=== PATIENT | male | born 2000 | race African-American/Black ===

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

== ENCOUNTER 2021-08-21 13:07 | Emergency (ER) | payer OTHER, SELFPAY ==
--- NOTE | ~2021-08-21 | XR_ITS ---
EXAMINATION: XR wrist LT min 3V DATE: 08/21/2021 13:32 INDICATION: 6 months of left wrist pain TECHNIQUE: Posteroanterior, ulnar deviation, oblique, and lateral views of the left wrist were obtain ed. COMPARISON: none FINDINGS: -3 mm ulnar positive variance. Alignment is otherwise normal. No fracture. Joint spaces are normal. N o erosions. Soft tissues are unremarkable. IMPRESSION: 1. 2-3 mm ulnar positive variance. Otherwise normal left wrist radiographs. Reviewed, dictated and finalized at location A. WORKING SUPERVISOR
[2021-08-21 13:14] VITALS: BP 148/58; PULSE 102; RESP 16; TEMP 36.6; O2SAT 100
--- NOTE | 2021-08-21 13:19 | ED.UPPEXIN ---
HPI - Extremity Injury (Upper) General Chief Complaint: Extremity Injury, Upper Stated Complaint: Right wrist injury Time Seen by Provider: 08/21/21 13:19 Source: patient Mode of arrival: ambulatory Limitations: no limitations History of Present Illness HPI narrative: 21-year-old male presented for complaint of pain to left wrist. Onset 6 months ago without known injury. He states he was playing basketball last night, fell on the left elbow and has had increased pain in the left wrist since the fall. He has not been taking anything for pain. Denies numbness, tingling, weakness, bruising or swelling of the left hand. Pain is worse with twisting motions especially taking the lid off of a jar. He states he is active, works in a warehouse and lifts weights, and plays basketball regularly. Related Data Allergies Allergy/AdvReac Type Severity Reaction Status Date / Time No Known Allergies Allergy Verified 08/21/21 13:14 Review of Systems Review of Systems: CONSTITUTIONAL: Denies body aches, fever, chills EYES: Denies visual changes ENT: Denies rhinorrhea, congestion CARDIOVASCULAR: Denies chest pain, palpitations, or edema. RESPIRATORY: Denies cough or dyspnea. GASTROINTESTINAL: Denies abdominal pain, nausea, vomiting, or diarrhea. SKIN: Denies rash, itching, or wounds. MUSCULOSKELETAL: left wrist pain NEUROLOGIC: Denies headache, numbness, tingling, or weakness. PSYCH: Denies depression or anxiety. All systems reviewed & are unremarkable except as noted in HPI and below PMFSH Past Medical History Medical History (Updated 08/21/21 @ 13:35 by Yoli Merritt APRN) Medial meniscus tear Tear of MCL (medial collateral ligament) of knee Surgical History Surgical History S/P epiphysiodesis Right distal femur/proximal tibia () Family History Family History Other Hypertension Social History Social History Alcohol intake: never Gender identity (if verbalized by the patient): Male Spiritual care concerns: No Comments At time of signature, I have reviewed and agree with nursing past medical, surgical, social and family history unless otherwise noted. Please see nursing chart for further information. There is no relevant family history pertinent to the presenting complaint Exam Narrative: GENERAL: Well-appearing, well-nourished, and in no acute distress. HEAD: Normocephalic, atraumatic. EYES: PERRLA, conjunctivae clear NECK: Supple. CHEST: Speaks in full sentences. No respiratory distress. HEART: Regular rate and rhythm. Normal and equal peripheral pulses. EXTREMITIES: left wrist has normal strength and sensation, normal range of motion but endorses pain with twisting movements. No edema or ecchymosis No point tenderness. No open wounds, no skin tenting, no obvious deformity; alignment normal, nearby joints and structures intact. Radial pulses palpable and equal bilaterally, skin warm, dry, pink. Capillary refill less than 3 seconds. SKIN: Warm, dry, no rash. NEURO: Alert and oriented x3. PSYCH: Normal mood and affect Course Course Emergency Course: Patient is aware of diagnosis, understands and agrees to treatment plan. Anticipatory guidance given. Patient agrees to follow-up as directed and is aware of reasons to seek care at the emergency department. Portions of this record may have been created with voice recognition software Level of Care: Express Care Visit Vital Signs Vital signs: Vital Signs Temperature 97.9 F 08/21/21 13:14 Pulse Rate 102 H 08/21/21 13:14 Respiratory Rate 16 08/21/21 13:14 Blood Pressure 148/58 H 08/21/21 13:14 Pulse Oximetry 100 08/21/21 13:14 Temperature 97.9 F 08/21/21 13:14 Pulse Rate 102 H 08/21/21 13:14 Respiratory Rate 16 08/21/21 13:14 Blood Pressure 148/5
== END 2021-08-21 14:06 | disposition home or self-care (01) ==
PROVIDERS: Emergency Provider Nurse Practitioner Family
DX: G89.29 Other chronic pain (principal); M25.532 Pain in left wrist
CPT/HCPCS: 73110; 99213; G0463

== ENCOUNTER 2022-02-21 11:00 | Outpatient (RCR) | payer OTHER, SELFPAY ==
--- NOTE | 2022-01-17 13:37 | PTOPEVAL ---
Thank you for referring Jin Cruz to [facility].? He is scheduled to be seen for therapy? 2 x/week for 4 weeks. Please review, sign, date and return this plan of care DONELL. I agree with and certify that the following plan of care is medically necessary. Referring Physician Date Attending Provider: Rj Rodas MD Past Medical History Source of Past Medical History Recalled from Previous Visit, Confirmed with Patient/Family Musculoskeletal History Hx Orthopedic Surgery Yes: R knee x 3- Estephania cardoso repair 2x & meniscal tear 2019 Hx Other Musculoskeletal Disorders Yes: L foot fracture- non surgical Evaluation Information Diagnosis L wrist and L knee Onset October 19, 2021 Subjective Information L wrist surgery- removed wedge Query Text:As Reported By Patient/ of ulnar bone and repaired Family tendon- per pt; with brace removed December 20; have been doing exercises and playing basket ball; L knee--pain comes and goes; saw Dr and have been doing exercises but not helping it. Diagnostic Tests X-Rays For This Problem No MRI For This Problem No Other Tests For This Problem No Prior Level of Function Activity Level (Last 3 Months) Occupation student Hand Dominance Right Comments Additional Prior Level of Function play basket ball, have Comments returned to playing but have pain in L wrist and L knee; normal play basket ball 2 1/2 to 3 hours Pain Assessment Pain Scale Pain Scale Used Numeric (1 - 10) Self Report Pain Assessment Left Knee(s) Reported Pain Level 0 Pain Description Pinching,Pulling,Sharp Pain Frequency Chronic,Intermittent Lowest Pain Intensity 0 Greatest Pain Intensity 8 Additional Pain Comments after play basketball and rest about 1 hr and pain gone; Estephania Cardoso Left Wrist(s) Reported Pain Level 1 Pain Description Sharp Pain Frequency Chronic,Intermittent Other Pain Description medial wrist/ulnar bone Lowest Pain Intensity 1 Greatest Pain Intensity 7 Pain Aggravating Factors Exercise/Activity Other Pain Aggravating Factors playing basket ball after 30 min, but can keep playing Additional Pain Score Comments
--- NOTE | 2022-01-17 16:02 | PCPTNOTE ---
I faxed a request to for OT eval and treat order for his wrist L;
--- NOTE | 2022-01-26 13:56 | PCPTNOTE ---
Patient called & cancelled scheduled appointment this date stating that he wasn't able to make it in for the appointment.
--- NOTE | 2022-01-31 15:38 | OTOPEVAL ---
OCCUPATIONAL THERAPY INITIAL EVALUATION REPORT 01/31/22 Thank you for referring Jin Cruz to [facility].? The patient is scheduled to be seen for therapy? 2x/week for 4 weeks. Please review, sign, date and return this plan of care DONELL. I agree with and certify that the following plan of care is medically necessary. Referring Physician Date Referring Provider: Rj Rodas MD Past Medical History Source of Past Medical History Recalled from Previous Visit, Confirmed with Patient/Family Neurological History Hx Neurological Disorders No Significant History Cardiovascular History Hx Cardiac Disorders No Significant History Respiratory History Hx Respiratory Disorders No Significant History Gastrointestinal History Hx Gastrointestinal Disorders No Significant History Genitourinary History Hx Genitourinary Disorders No Significant History Musculoskeletal History Hx Orthopedic Surgery Yes: R knee x 3- [place] dhaliwal repair 2x & meniscal tear 2019 Hx Other Musculoskeletal Disorders Yes: L foot fracture- non surgical Hematological History Hx Hematological Disorders No Significant History Endocrine History Hx Endocrine Disorders No Significant History HEENT History Hx HEENT Disorders No Significant History Integumentary History Hx Skin Disorders No Significant History Reproductive History Hx Reproductive Disorders No Significant History Psychosocial History Hx Psychiatric Disorders No Significant History Pain History History of Any Previous or Ongoing No Significant History Instance of Pain Anesthesia History Hx Anesthesia Reactions No Significant History Evaluation Information Problem Additional Evaluation Detail Patient underwent ulnar shortening to the left wrist on 10/19/21. Has not had any therapy. Subjective Information Splinted October 19, 2021 - Query Text:As Reported By Patient/ December 20, 2021. Patient Family reporting significant pain with use, trying to bear any weight through the hand, driving, playing basketball, etc. He leaves for college on 02/23. Prior Level of Function Activity Level (Last 3 Months) Occupation student, works at [employer] Hand Dominance Right Activity of Daily Living Ability Independent Driving Yes Pain Assessment Timing of Pain Assessment Timing of Pain Assessment Assessment Pain Scale Pain Scale Used Numeric (1 - 10) Self Report Pain Assessment Left Wrist(s) Reported Pain Level
--- NOTE | 2022-02-14 14:46 | PTOPEVAL ---
PHYSICAL THERAPY DISCHARGE REPORT 02-14-22 Refer to the clinical summary below, for his status today compared to the initial evaluation. The goals were partially achieved. Jin is leaving town for college; Discharge PT services. Thank you for referring Jin Cruz to [facility].? Please review, sign, date and return this Discharge report DONELL. I agree with and certify that the following plan of care is medically necessary. Referring Physician Date Attending Provider: Rj Rodas MD Subjective report: Jin reports:is doing the Query Text:As Reported By Patient/ exercises at home; is still Family having problems with the knee; is leaving for college next week; Pain Assessment Pain Scale Pain Scale Used Numeric (1 - 10) Self Report Pain Assessment Left Knee(s) Reported Pain Level 0 Pain Description Aching Pain Frequency Chronic,Intermittent Other Pain Description under knee cap hurts Lowest Pain Intensity 0 Greatest Pain Intensity 8 Pain Aggravating Factors Exercise/Activity Other Pain Aggravating Factors playing basket ball, up stairs Additional Pain Score Comments report tolerating playing basketball, onset of pain after 5 minutes, played 45 minutes then stopped; pain continues about 4-5 hours after rest and stop playing basket ball; kinesiotape helps the knee; applied at end of session over L patella; pt instructed on application and use of tape; issued name of tape; Interventions Used Interventions Used By Clinicians Education,Exercise,Taping Pain Relief Interventions Used By Elevation,Ice Patient Other Alleviating Interventions warm bath; stretch, tape Gross Lower Extremity Range of Motion -anterior hip/quad length with Comments prone knee flexion B 125'; - hip IR, supine with hip and knee at 90' flexion: R 10'/ L 20' Gross Lower Extremity Strength functional strength testing: - standing B small squat x 10 reps- increase pain under L knee cap -standing L only PF x 12 reps- increase burning in calf, no increase knee pain; perform with hip ER - forward lunge with L forward
--- NOTE | 2022-02-21 11:58 | OTOPEVAL ---
OCCUPATIONAL THERAPY RE-EVALUATION AND DISCHARGE SUMMARY 02/21/22 Jin presents for OT re-evaluation following 3 weeks of treatment s/p left ulnar shortening surgery. He has progressed well with therapy and reports improved functional use of the left UE for ADLs, lifting/working out, and playing basketball. He continues to have some residual forearm stiffness for which he is independent with HEP. No further skilled OT indicated at this time. Thank you for referring Jin Cruz to [facility]. Please review, sign, date and return this D/C Note DONELL. I agree with and certify that the following plan of care is medically necessary. Referring Physician Date Referring Provider: Rj Rodas MD Re-Evaluation Information Problem Additional Evaluation Detail Patient underwent ulnar shortening to the left wrist on 10/19/21. He has attended 5 outpatient hand therapy sessions. Subjective Information Jin reports improvements Query Text:As Reported By Patient/ with functional ROM and Family strength. He states he is now using his left hand to drive, is now able to to push ups, and has been able to get back to lifting and working out. He reports some residual stiffness and pain with pronation. Pain Assessment Timing of Pain Assessment Timing of Pain Assessment Re-assessment Pain Scale Pain Scale Used Numeric (1 - 10) Self Report Pain Assessment Left Wrist(s) Reported Pain Level 0 Pain Score Pain Score 0: Self Report Additional Pain Score Comments Patient reports no pain at rest. Continues to have 6-8/10 with exercises and when playing basketball. He states he doesn't get as sore as he used to following exercise. Upper Extremity Range of Motion Elbow/Forearm Range of Motion Left Forearm Supination - Active 85 Forearm Pronation - Active 60 Forearm Pronation - Passive 75 Elbow/Forearm Range of Motion Comments Supination improved from 80 deg. Pronation improved from 30 deg . actively Pronation improved from 45 deg . passively Wrist Range of Motion Left Wrist Flexion - Active 70 Wrist Extension - Active 70 Wrist Radial Deviation - Active 30 Wrist Ulnar Deviation - Active 35 Wrist Range of Motion Comments Wrist flexion improved from 6
== END 2022-02-21 14:22 | disposition home or self-care (01) ==
LOC: ANHOT 11:00
PROVIDERS: PCP Nurse Practitioner Family; Visit Provider Orthopaedic Surgery
DX: M76.52 Patellar tendinitis, left knee (principal); Q74.0 Other congenital malformations of upper limb(s), including shoulder girdle
CPT/HCPCS: 97018; 97110; 97112; 97140; 97161; 97165

== ENCOUNTER 2024-07-04 12:31 | Emergency (ER) | payer OTHER, SELFPAY ==
--- NOTE | ~2024-07-04 | XR_ITS ---
EXAMINATION: XR foot LT min 3V DATE: 07/04/2024 13:01 INDICATION: Left foot pain. TECHNIQUE: 4 views of left foot were obtained. COMPARISON: Left foot radiographs 03/22/2024 FINDINGS: Alignment is normal. There is a healed fracture of fifth metatarsal with internal fixation with a lag screw. There is mild osteoarthritis of talonavicular joint. IMPRESSION: 1. Healed fracture of fifth metatarsal with internal fixation. Reviewed, dictated and finalized at location A. LESS DEVELOPMENT MANAGER
[2024-07-04 12:39] VITALS: BP 155/72; PULSE 75; RESP 16; TEMP 37; O2SAT 99
--- NOTE | 2024-07-04 13:11 | ED.LOWEXIN ---
HPI - Extremity Injury (Lower) General Chief Complaint: Extremity Injury, Lower Stated Complaint: left foot pain Source: patient Mode of arrival: ambulatory Limitations: no limitations History of Present Illness HPI Narrative: 24 y/o male presented for c/o left lateral foot pain for 3 weeks. Pain started after playing basketball, stating he had not played in a while. States he has a history of left 5th metatarsal fractures x2 in the past year. Denies swelling, bruising or deformity. Has been able to walk. Related Data Allergies Allergy/AdvReac Type Severity Reaction Status Date / Time No Known Allergies Allergy Verified 07/04/24 12:43 Review of Systems Review of Systems: per HPI All systems reviewed & are unremarkable except as noted in HPI and below PMFSH Past Medical History Medical History Medial meniscus tear RIGHT knee 03/2020 Recurrent 03/2024 Tear of MCL (medial collateral ligament) of knee RIGHT knee 03/2020 Surgical History Surgical History H/O medial meniscus repair of right knee 03/2020 S/P epiphysiodesis Right distal femur/proximal tibia () Family History Family History Other Hypertension Social History Social History Smoking status: Never smoker Alcohol intake: never Substance use: never Living arrangements: with family Gender identity (if verbalized by the patient): Male Spiritual care concerns: No Comments At time of signature, I have reviewed and agree with nursing past medical, surgical, social and family history unless otherwise noted. Please see nursing chart for further information. There is no relevant family history pertinent to the presenting complaint Exam Narrative: GENERAL: Well-appearing CHEST: Speaks in full sentences. No respiratory distress. HEART: Regular rate and rhythm. Normal and equal peripheral pulses. EXTREMITIES: Left foot has normal strength and sensation, normal range of motion. No swelling or ecchymosis, No point tenderness. No open wounds, or obvious deformity; alignment normal, pulse palpable and equal bilaterally, skin warm, dry, pink. Capillary refill less than 3 seconds. SKIN: Warm, dry NEURO: Alert and oriented x3. PSYCH: Normal mood and affect Course Course Emergency Course: Patient is aware of diagnosis, understands and agrees to treatment plan. Anticipatory guidance given. Patient agrees to follow-up as directed and is aware of reasons to seek care at the emergency department. Portions of this record may have been created with voice recognition software Level of Care: Express Care Visit Vital Signs Vital signs: Vital Signs Temperature 98.6 F 07/04/24 12:39 Pulse Rate 75 07/04/24 12:39 Respiratory Rate 16 07/04/24 12:39 Blood Pressure 155/72 H 07/04/24 12:39 Pulse Oximetry 99 07/04/24 12:39 Temperature 98.6 F 07/04/24 12:39 Pulse Rate 75 07/04/24 12:39 Respiratory Rate 16 07/04/24 12:39 Blood Pressure 155/72 H 07/04/24 12:39 Pulse Oximetry 99 07/04/24 12:39 Reviewed MDM - Extremity Injury (Lower) MDM Narrative Medical decision making narrative: Discussed physical exam findings and xray. Advised supportive measures and signs/symptoms to go to the ER. Pt is appropriate for outpt treatment and f/u. Differential Diagnosis Differential diagnosis: Likely ankle sprain and strain, puncture wound of foot, fracture of toe and ankle fracture Imaging Data Radiologist's impression: Patient: Jin Cruz : 2000 MR#: [id number] Age: 24 Acct:[id number] Loc: [facility] ADM Date: 07/04/24Attending Dr: Ordering Physician: Yoli Graves APRN Date of Service: 07/04/24 Procedure(s): XR foot LT min 3V Accession Number(s): [id number] cc: Yoli Graves APRN; UNKNOWN,DOCTOR~ EXAMINATION: XR foot LT min 3V DATE: 07/04/2024 13:01 INDICATION: Left foot pain. TECHNIQUE: 4 views of left foot were obtained. COMPARISON: Left foot radiographs 03/22/2024 FINDINGS: Alignment is normal. There is a healed fracture of fifth metatarsal with internal fixation with a lag screw. There is mild osteoarthritis of talonavicular joint. IMPRESSION: 1. Healed fracture of fifth metatarsal with internal fixation. Discharge Plan Discharge Clinical Impression: Foot pain, left Patient Disposition: Home, Self-Care Condition: Stable Instructions: Foot Sprain (ED) Additional Instructions: Rest, elevate the left foot Avoid running, jumping or excessive walking Roll a frozen water bottle under your foot for at least 10 minutes 3 times a day Wear supportive shoes at all times, avoid flip flop or walking barefoot ROXANA wrap or sleeve to support foot and ankle Tylenol 1000mg every 8 hours as needed, alternate with ibuprofen 800 mg every 8 hours as needed for pain Go to the ER if you feel sudden and severe pain or cannot walk If you feel pain that persists or worsens or you struggle to work or do daily activities you need to follow up with your primary care provider. Patient Language: Israeli Follow-up/Referrals: UNKNOWN,DOCTOR [Primary Care Provider] - Time of Disposition: 13:19
== END 2024-07-04 13:21 | disposition home or self-care (01) ==
PROVIDERS: Emergency Provider Nurse Practitioner Family
DX: M79.672 Pain in left foot (principal)
CPT/HCPCS: 73630; 99213; G0463

== ENCOUNTER 2024-07-17 09:00 | Outpatient (RCR) | payer OTHER, SELFPAY ==
--- NOTE | 2024-03-20 11:30 | PCPTNOTE ---
Patient did not show up for scheduled initial evaluation this date.
--- NOTE | 2024-04-16 09:07 | PCPTNOTE ---
Patient did not show up for scheduled appointment this date. This is the third time his evaluation has been scheduled.
--- NOTE | 2024-04-30 12:36 | OPREHPOC ---
Outpatient Therapy Plan of Care This is a Multidisciplinary Plan of Care that may contain components documented by all disciplines (PT, OT, and ST.) PT Problem 1 PT Problem #1 Knowledge Deficit PT Goal 1 Goal / Goal Update [place] with HEP Target Visit 4 PT Problem 2 PT Problem #2 Impaired Range of Motion PT Goal 1 Goal / Goal Update Demonstrate -20 degrees of flaco hamstring 90/90 to reduce posterior pelvic pull Target Visit 8 PT Goal 2 Goal / Goal Update Demonstrate 10 degrees flaco hip extension in Ganesh test to improve terminal stance of gait and reduce patellar pull from quad Target Visit 10 PT Problem 3 PT Problem #3 Impaired Range of Motion PT Goal 1 Goal / Goal Update Achieve 10+ degrees of flaco ankle dorsiflexion ROM to improve terminal stance and ankle mobility Target Visit 10 PT Problem 4 PT Problem #4 Impaired Strength PT Goal 1 Goal / Goal Update Improve flaco hip abduction strength to 4+/5 to improve lateral stability with dynamic ADL loading
--- NOTE | 2024-04-30 12:37 | PTOPEVAL1 ---
Assessment and note entered by Brendon Barker, PT Evaluation Information Assessment Status Evaluation Diagnosis History of 5th met fracture Onset April 2023 Subjective Information Reports that he is getting some pain with activity and occasional shocks of discomfort at rest. Will get pain in lateral calf as well. Currently feels he could walk about a quarter mile before he gets pain in his knee or foot. He has history of left meniscectomy and jumpers knee on flaco knees. He had returned to basketball last July but refractured his foot. He has mostly been shut down since January but was doing stationary bike. Reported Pain Level Pain Score 0: Self Report Assessment PT Clinical Summary Patient presents with limited hip mobility with notable muscle imbalance. Weakness noted in lateral hips and lateral ankle. Patient has gross kinematic mobility deficits resulting in poor distribution of force and weight in dynamic activity. Patient will benefit from skilled therapy to address these deficits to reduce pain and risk of injury with transition to age appropriate dynamic activity. Plan of Care Interventions Gait Training,Manual Therapy,Neuro Re-education, Therapeutic Activities,Therapeutic Exercise PT Services Indicated Yes Treatment Frequency and 2x/week for 8 visits Duration These treatments will address the objective and functional deficits as defined above. The patient will be advanced safely and appropriately in order for the patient to progress towards his/her prior level of function. Additional exercises will be introduced and as well as a comprehensive home exercise program upon discharge, if needed, ?to ensure carryover of functional gains achieved in the clinic. This treatment plan has been reviewed and agreement upon by the patient.
--- NOTE | 2024-05-28 16:58 | OPREHPOC ---
Outpatient Therapy Plan of Care This is a Multidisciplinary Plan of Care that may contain components documented by all disciplines (PT, OT, and ST.) PT Problem 1 PT Problem #1 Knowledge Deficit PT Goal 1 Goal / Goal Update [place] with HEP Target Visit 4 Progress Met PT Problem 2 PT Problem #2 Impaired Range of Motion PT Goal 1 Goal / Goal Update Demonstrate -20 degrees of flaco hamstring 90/90 to reduce posterior pelvic pull Target Visit 8 Progress Met PT Goal 2 Goal / Goal Update Demonstrate 10 degrees flaco hip extension in Ganesh test to improve terminal stance of gait and reduce patellar pull from quad Target Visit 10 Progress Met PT Problem 3 PT Problem #3 Impaired Range of Motion PT Goal 1 Goal / Goal Update Achieve 10+ degrees of flaco ankle dorsiflexion ROM to improve terminal stance and ankle mobility Target Visit 10 Progress Met PT Problem 4 PT Problem #4 Impaired Strength PT Goal 1 Goal / Goal Update Improve flaco hip abduction strength to 4+/5 to improve lateral stability with dynamic ADL loading -Still lacking Target Visit 16 Progress Partially Met PT Goal 2 Goal / Goal Update Demonstrate ability to perform dynamic jumping activity without increased knee pain. Target Visit 16
--- NOTE | 2024-05-28 16:58 | PTOPPROG ---
Assessment and note entered by Brendon Barker, PT Evaluation Information Assessment Status Progress Diagnosis History of 5th met fracture Onset April 2023 Subjective Information Reports that he has been emphasizing HEP for hip strength and ROM in ankle and flaco hips. He has tried light running and shoe shooting with mild discomfort. Does not have pain at rest. Assessment PT Clinical Summary Patient seen functional progress with strength and stability improvement in affected knee and leg but continue to lack dynamic stability for age appropriate activity. He continues to have significant pain with knee stability exercise and single leg activity but is non painful at rest which is an improvement. Will continue to benefit from skilled therapy to address deficits. Plan of Care Interventions Gait Training,Manual Therapy,Neuro Re-education, Therapeutic Activities,Therapeutic Exercise PT Services Indicated Yes Treatment Frequency and 2x/week for 8 visits Duration These treatments will address the objective and functional deficits as defined above. The patient will be advanced safely and appropriately in order for the patient to progress towards his/her prior level of function. Additional exercises will be introduced and as well as a comprehensive home exercise program upon discharge, if needed, ?to ensure carryover of functional gains achieved in the clinic. This treatment plan has been reviewed and agreement upon by the patient.
--- NOTE | 2024-06-06 09:12 | PCPTNOTE ---
Patient no showed to appointment this date. Called and left voicemail. Patient called back to say he got his appointment times mixed up.
== END 2024-07-29 23:59 | disposition home or self-care (01) ==
LOC: ANHGOSHPT 09:00
PROVIDERS: PCP Nurse Practitioner Family; Visit Provider Orthopaedic Surgery
DX: S92.352D Displaced fracture of fifth metatarsal bone, left foot, subsequent encounter for fracture with routine healing (principal)
CPT/HCPCS: 97016; 97110; 97161; 97530

== ENCOUNTER 2024-07-29 14:21 | Emergency (ER) | payer OTHER, SELFPAY ==
[2024-07-29 14:48] VITALS: BP 130/53; PULSE 59; RESP 16; TEMP 36.4; O2SAT 100
== END 2024-07-29 15:19 | disposition left against medical advice (07) ==
LOC: EXPGOSH 14:23
PROVIDERS: Emergency Provider Nurse Practitioner Family
DX: Z53.21 Procedure and treatment not carried out due to patient leaving prior to being seen by health care provider (principal)
CPT/HCPCS: 99199

== ENCOUNTER 2024-08-05 11:26 | Outpatient (RCR) | payer OTHER, SELFPAY ==
--- NOTE | 2024-08-05 10:15 | PCPTNOTE ---
The treatment documented on this account is a continuation of the treatment documented on visit number [id number]. Please see documentation on both accounts to view progress. The Plan of Care has been transitioned and updated within the new V#. I have addressed and agree with the discipline specific Problems, Interventions, and Goals for the current certification period. Completed interventions, outcomes, and problems have been marked as Inactive to facilitate the copying of the Care plan routine for recurring accounts.
--- NOTE | 2024-08-05 11:17 | OPREHPOC ---
Outpatient Therapy Plan of Care This is a Multidisciplinary Plan of Care that may contain components documented by all disciplines (PT, OT, and ST.) PT Problem 1 PT Problem #1 Knowledge Deficit PT Goal 1 Goal / Goal Update [place] with HEP Target Visit 4 Progress Met PT Problem 2 PT Problem #2 Impaired Range of Motion PT Goal 1 Goal / Goal Update Demonstrate -20 degrees of flaco hamstring 90/90 to reduce posterior pelvic pull Target Visit 8 Progress Met PT Goal 2 Goal / Goal Update Demonstrate 10 degrees flaco hip extension in Ganesh test to improve terminal stance of gait and reduce patellar pull from quad Target Visit 10 Progress Met PT Problem 3 PT Problem #3 Impaired Range of Motion PT Goal 1 Goal / Goal Update Achieve 10+ degrees of flaco ankle dorsiflexion ROM to improve terminal stance and ankle mobility Target Visit 10 Progress Met PT Problem 4 PT Problem #4 Impaired Strength PT Goal 1 Goal / Goal Update Improve flaco hip abduction strength to 4+/5 to improve lateral stability with dynamic ADL loading -Still lacking Target Visit 16 Progress Met PT Goal 2 Goal / Goal Update Demonstrate ability to perform dynamic jumping activity without increased knee pain. 08/05/24: 1. progressing Target Visit 16 Progress Not Met
--- NOTE | 2024-08-05 11:17 | PTOPPROG ---
Assessment and note entered by Gary Woo, PT, DPT Evaluation Information Assessment Status Progress Diagnosis History of 5th met fracture Onset April 2023 Subjective Information Pt has not been at therapy for the last 2 weeks d/ t insurance verification. He states since then he has been playing 4v4 and has progressed to 5v5 on a full court. States afterwards his L foot and flaco knees are really sore. Assessment PT Clinical Summary Pt has completed 16 visits of skilled therapy, he demonstrates improved LE strength throughout, his R hip abduction and L ankle plantarflexion continue to be weaker when compared to his uninvolved side. He has progressed his dynamic exercise level but continues to have persistent ankle and knee pain with age appropriate activities. Has improved strength and stability with single leg exercises but still has an increase in pain afterwards. Continuation of skilled therapy services are indicated to improve strength and stability, pain reports, and return to PLOF. ill continue to benefit from skilled therapy to address deficits. Plan of Care Interventions Gait Training,Manual Therapy,Neuro Re-education, Therapeutic Activities,Therapeutic Exercise PT Services Indicated Yes Treatment Frequency and 2x/wk for 8 visits Duration These treatments will address the objective and functional deficits as defined above. The patient will be advanced safely and appropriately in order for the patient to progress towards his/her prior level of function. Additional exercises will be introduced and as well as a comprehensive home exercise program upon discharge, if needed, ?to ensure carryover of functional gains achieved in the clinic. This treatment plan has been reviewed and agreement upon by the patient.
--- NOTE | 2024-08-09 11:30 | PCPTNOTE ---
Patient no showed appointment this date. Called patient and patient said that he wrote down the wrong time for his appointment today. Confirmed next appointment with patient which is 08/16.
--- NOTE | 2024-08-14 10:34 | PCPTNOTE ---
Patient had to cancel therapy this date due to having to watch his brother who did not have school.
--- NOTE | 2024-08-16 09:05 | PCPTNOTE ---
Patient canceled this date due to car trouble.
--- NOTE | 2024-08-21 10:13 | PCPTNOTE ---
Patient called to cancel this date due to illness. Patient states he wants to cancel all his remaining visits out due to his schedule and not being able to make it.
--- NOTE | 2024-08-27 10:15 | PTOPDC ---
Assessment and note entered by Gary Woo, PT, DPT Evaluation Information Assessment Status Discharge - Pt Not Present Diagnosis History of 5th met fracture Onset April 2023 Subjective Information Pt called and cancelled all of his remaining appointments states his schedule is too busy at this time. Assessment PT Clinical Summary Pt completed 16 visits of skilled therapy from to 08/21/24. Will be discharged at this time per pt request.
== END 2024-08-27 14:03 | disposition home or self-care (01) ==
LOC: ANHGOSHPT 11:26
PROVIDERS: Visit Provider Orthopaedic Surgery
DX: S92.352D Displaced fracture of fifth metatarsal bone, left foot, subsequent encounter for fracture with routine healing (principal)
CPT/HCPCS: 97110; 97530

== ENCOUNTER 2024-11-01 13:30 | Outpatient (RCR) | payer OTHER, SELFPAY ==
--- NOTE | 2024-10-08 16:55 | OPREHPOC ---
Outpatient Therapy Plan of Care This is a Multidisciplinary Plan of Care that may contain components documented by all disciplines (PT, OT, and ST.) PT Problem 1 PT Problem #1 Knowledge Deficit PT Goal 1 Goal / Goal Update [place] with HEP Target Visit 4 PT Goal 2 Goal / Goal Update Improve LEFS score by 40% Target Visit 8 PT Problem 2 PT Problem #2 Pain PT Goal 1 Goal / Goal Update Report no knee pain greater than 1/10 for 2 consecutive weeks Target Visit 8 PT Problem 3 PT Problem #3 Impaired Range of Motion PT Goal 1 Goal / Goal Update 1. Improve R knee flexion ROM to 130 degrees without pain 2. Improve left ankle dorsiflexion ROM to 15 degrees to improve leading of ankle in closed pack position8 Target Visit 8 PT Problem 4 PT Problem #4 Impaired Functional Mobility PT Goal 1 Goal / Goal Update Demonstrate ability to perform jumping and dynamic activity for 5 minutes without increased knee pain Target Visit 8
--- NOTE | 2024-10-08 16:55 | PTOPEVAL1 ---
Assessment and note entered by Brendon Barker, PT Evaluation Information Assessment Status Evaluation Diagnosis S83.231D Right Medial meniscus tear ICD-10 Condition Codes (PT) Pain in right shoulder M25.511,Pain in right knee M25.561 Onset August 31, 2024 Subjective Information Reports that he has had a lot of issues recently with his right knee. He has noted some improvement in the past few days with motion. Reports that he is also having some issues with his shoulder as well. Pain has been somewhat increased with stretching at this time. Reports that he had a basketball showcase in August and the pain really set in after that. He is also having a mild provocation of let foot pain but it seems to be getting better in the last few weeks. Reported Pain Level Pain Score 1,3: Self Report Assessment PT Clinical Summary Patient presents with mobility deficits of left ankle, right knee, and flaco rotation of hips affecting dynamic functional activity and plyometrics. Patient presents with stability deficits of R shoulder as well which may be affected by gross lower chain instability translating into upper body activity. Patient will benefit form skilled therapy to address mobility and strength deficits with gross stability training as long-term goal. Plan of Care Interventions Electrical Stimulation,Gait Training,Manual Therapy,Neuro Re-education,Therapeutic Activities, Therapeutic Exercise PT Services Indicated Yes Treatment Frequency and 1-2x/week for 8 visits Duration These treatments will address the objective and functional deficits as defined above. The patient will be advanced safely and appropriately in order for the patient to progress towards his/her prior level of function. Additional exercises will be introduced and as well as a comprehensive home exercise program upon discharge, if needed, ?to ensure carryover of functional gains achieved in the clinic. This treatment plan has been reviewed and agreement upon by the patient.
--- NOTE | 2024-10-23 10:07 | PCPTNOTE ---
Patient called & cancelled scheduled appointment this date due to scheduling conflicts.
--- NOTE | 2024-10-28 08:06 | PCPTNOTE ---
Patient called & cancelled scheduled appointment this date due to being in too much pain to participate.
--- NOTE | 2024-11-01 15:41 | OPREHPOC ---
Outpatient Therapy Plan of Care This is a Multidisciplinary Plan of Care that may contain components documented by all disciplines (PT, OT, and ST.) PT Problem 1 PT Problem #1 Knowledge Deficit PT Goal 1 Goal / Goal Update [place] with HEP Target Visit 4 Progress Met PT Goal 2 Goal / Goal Update Improve LEFS score by 40% Target Visit 8 Progress Met PT Problem 2 PT Problem #2 Pain PT Goal 1 Goal / Goal Update Report no knee pain greater than 1/10 for 2 consecutive weeks Target Visit 8 Progress Met PT Problem 3 PT Problem #3 Impaired Range of Motion PT Goal 1 Goal / Goal Update 1. Improve R knee flexion ROM to 130 degrees without pain 2. Improve left ankle dorsiflexion ROM to 15 degrees to improve leading of ankle in closed pack position8 Target Visit 8 Progress Met PT Problem 4 PT Problem #4 Impaired Functional Mobility PT Goal 1 Goal / Goal Update Demonstrate ability to perform jumping and dynamic activity for 5 minutes without increased knee pain Target Visit 8 Progress Met
--- NOTE | 2024-11-01 15:41 | PTOPDC ---
Assessment and note entered by Brendon Barker, PT Evaluation Information Assessment Status Discharge Diagnosis S83.231D Right Medial meniscus tear ICD-10 Condition Codes (PT) Pain in right shoulder M25.511,Pain in right knee M25.561 Onset August 31, 2024 Subjective Information Reports that as of right now he is feeling better. Played a game of pickup basketball last week and was a little sore but able to roll and stretch it out. He has been consistently foam rolling and has seen decreased pain and improved gross hip and knee mobility. Reported Pain Level Pain Score 0,0: Self Report Assessment PT Clinical Summary Patient met all goals for therapy at this time and is suitable for discharge to [facility] to independent foam rolling and mobility activity. Patient has follow up scheduled with MD to review MRI of both knee and shoulder. Plan of Care PT Services Indicated Yes
== END 2024-11-04 11:58 | disposition home or self-care (01) ==
LOC: ANHGOSHPT 13:30
PROVIDERS: PCP Orthopaedic Surgery; Visit Provider Orthopaedic Surgery
DX: S92.352D Displaced fracture of fifth metatarsal bone, left foot, subsequent encounter for fracture with routine healing (principal); S83.231D Complex tear of medial meniscus, current injury, right knee, subsequent encounter
CPT/HCPCS: 97014; 97110; 97140; 97161; 97530; G0283

== ENCOUNTER 2025-01-01 12:46 | Emergency (ER) | payer OTHER, SELFPAY ==
[2025-01-01 12:58] VITALS: BP 133/65; PULSE 48; RESP 16; TEMP 36.6; O2SAT 100
--- NOTE | 2025-01-01 13:00 | ED.LOWEXIN ---
HPI - Extremity Injury (Lower) General Chief Complaint: Extremity Injury, Lower Stated Complaint: L HIP PAIN Time Seen by Provider: 01/01/25 13:00 Source: patient Mode of arrival: ambulatory Limitations: no limitations History of Present Illness HPI Narrative: 24 yo M presents with pain to L upper anterior thigh. Pain worse with movement. Started yesterday while stepping wrong. Ambulatory with limp. has not taken any pain medication. concerned he may need an MRI. No weakness, numbness/tingling. all systems reviewed and negative except as noted above. Related Data Allergies Allergy/AdvReac Type Severity Reaction Status Date / Time No Known Allergies Allergy Verified 01/01/25 12:54 Review of Systems Review of Systems: CONSTITUTIONAL: Denies fever, chills, or sweats. EYES: Denies visual changes, redness, or discharge. ENT: Denies rhinorrhea, congestion, sore throat, or otalgia. CARDIOVASCULAR: Denies chest pain, palpitations, or edema. RESPIRATORY: Denies cough or dyspnea. GASTROINTESTINAL: Denies abdominal pain, nausea, vomiting, or diarrhea. GENITOURINARY: Denies dysuria or hematuria. SKIN: Denies rash or itching. MUSCULOSKELETAL: Denies back pain, joint pain, or myalgia. Reports left upper thigh pain NEUROLOGIC: Denies headache, numbness, or weakness. PSYCHIATRIC: Denies anxiety or depression. All other systems reviewed are negative, except as documented in HPI. [facility] Past Medical History Medical History Medial meniscus tear RIGHT knee 03/2020 Recurrent 03/2024 Tear of MCL (medial collateral ligament) of knee RIGHT knee 03/2020 Surgical History Surgical History H/O medial meniscus repair of right knee 03/2020 S/P epiphysiodesis Right distal femur/proximal tibia () Family History Family History Other Hypertension Social History Social History Smoking status: Never smoker Alcohol intake: never Substance use: never Living arrangements: with family Gender identity (if verbalized by the patient): Male Spiritual care concerns: No Comments At time of signature, agree with nursing past medical, surgical, social and family history. There is no relevant family history pertinent to the presenting complaint. Exam Narrative: GENERAL: This is a well-nourished, well-developed patient, in no apparent distress. HEAD: normocephalic, atraumatic. EYES: PERRL. Sclera clear/white. Vision is grossly intact. EARS: External ears normal NOSE: External nose normal NECK: Neck supple, non-tender without lymphadenopathy, masses or thyromegaly. CARDIOVASCULAR: Regular rate and rhythm without murmurs, gallops, or rubs. RESPIRATORY: Clear to auscultation. Breath sounds equal bilaterally. No wheezes, rales, or rhonchi. SKIN: warm, Dry, intact with no suspicious lesions or rash, good texture and turgor. NEURO: awake, alert, and oriented to person, place and time. There were no obvious focal neurologic abnormalities. EXTREMITIES: muscular tenderness anterior aspect L upper thigh. No increase in pain with abduction or adduction of L hip. no swelling or deformity noted. no groin tenderness. Course Course Level of Care: Express Care Visit Vital Signs Vital signs: Vital Signs Temperature 36.6 C 01/01/25 12:58 Pulse Rate 48 L 01/01/25 12:58 Respiratory Rate 16 01/01/25 12:58 Blood Pressure 133/65 01/01/25 12:58 Pulse Oximetry 100 01/01/25 12:58 Oxygen Delivery Room Air 01/01/25 12:58 Temperature 36.6 C 01/01/25 12:58 Pulse Rate 48 L 01/01/25 12:58 Respiratory Rate 16 01/01/25 12:58 Blood Pressure 133/65 01/01/25 12:58 Pulse Oximetry 100 01/01/25 12:58 Oxygen Delivery Room Air 01/01/25 12:58 Reviewed MDM - Extremity Injury (Lower) MDM Narrative Medical decision making narrative: Muscular tenderness to left upper thigh. X-ray not indicated due to no bony tenderness. Patient ambulatory with slight. Recommend ibuprofen, muscle relaxant stretching, ice. Will see his primary care physician if pain is not improving. No neurovascular symptoms. Discharge Plan Discharge Clinical Impression: Sprain and strain of other specified sites of hip and thigh Patient Disposition: Home Condition: Stable Instructions: Muscle Strain (ED) Additional Instructions: Take medications as prescribed. Methocarbamol as a muscle relaxant may cause drowsiness. Do not drive while taking this medication. Do stretching exercises as tolerated. Alternate between ice and heat. Avoid activities that increase pain to left upper leg. If pain not improving follow-up with your primary care physician. Patient Language: Haitian Prescriptions: New ibuprofen 800 mg tablet 800 mg PO TID PRN (Reason: pain) Qty: 30 0RF methocarbamol 750 mg tablet 750 mg PO Q8H PRN (Reason: muscle pain/spasm) Qty: 30 0RF Follow-up/Referrals: Faye,Yovani [Other] Time of Disposition: 13:08
== END 2025-01-01 13:12 | disposition home or self-care (01) ==
PROVIDERS: Emergency Provider Nurse Practitioner Family
DX: S73.192A Other sprain of left hip, initial encounter (principal); S79.822A Other specified injuries of left thigh, initial encounter; S76.812A Strain of other specified muscles, fascia and tendons at thigh level, left thigh, initial encounter; S76.012A Strain of muscle, fascia and tendon of left hip, initial encounter; X50.9XXA Other and unspecified overexertion or strenuous movements or postures, initial encounter
CPT/HCPCS: 99213; G0463

== ENCOUNTER 2025-01-26 14:17 | Emergency (ER) | payer OTHER, SELFPAY ==
--- NOTE | ~2025-01-26 | XR_ITS ---
EXAM: XR foot LT min 3V DATE: 01/26/2025 14:36 HISTORY: left foot pain/5th metatarsal- hx of fracture . COMPARISON: 07/04/2024; 07/18/2018. FINDINGS: Normal mineralization. Status post screw fixation of the left fifth metatarsal. Stable 2 m m lucency at the tip of the screw. No hardware fracture. Transversely oriented lucency involving the lateral cortex of the left fifth metatarsal shaft, with adjacent cortical thickening/sclerosis. No ly tic or blastic lesion. Joint spaces are maintained. No erosion or periosteal change. Soft tissues wit hin normal limits. IMPRESSION: New transverse cortical lucency in the lateral aspect of the left fifth metatarsal shaft which may re present a recurrent stress fracture, despite the presence of a fixation screw. No definite evidence o f screw failure. Infection could also be considered in the differential, but is considered less likel y. Reviewed, dictated and finalized at location K. IMPRESSION: New transverse cortical lucency in the lateral aspect of the left fifth metatar ehsan shaft which may represent a recurrent stress fracture, despite the presence of a fixation screw. No definite evidence of screw failure. Infection could al so be considered in the differential, but is considered less likely.
--- NOTE | 2025-01-26 14:19 | ED.LOWEXIN ---
HPI - Extremity Injury (Lower) General Chief Complaint: Extremity Injury, Lower Stated Complaint: INJURED L FOOT Time Seen by Provider: 01/26/25 14:18 Source: patient Mode of arrival: ambulatory Limitations: no limitations History of Present Illness HPI Narrative: Jin is a 25 year old male patient presenting to the clinic today with c/o left foot injury that occurred 30 minutes ago when he was playing basketball. He reports he was playing basketball he twisted his left foot to do a move and felt a pop in the left foot/5th metatarsal. Having pain over the left 5th metatarsal. History of fracture of the left 5th metatarsal with ORIF. Related Data Home Medications ?Medication ?Instructions ?Recorded ?Confirmed ?Last Taken ?Type No Home Medications 01/26/25 01/26/25 Unknown History Allergies Allergy/AdvReac Type Severity Reaction Status Date / Time No Known Allergies Allergy Verified 01/26/25 14:25 Review of Systems Review of Systems: Pertinent positives per HPI. Patient denies any fever, chills, rash, headache, visual changes, dizziness, cough, runny nose, sore throat, shortness of breath, chest pain, palpitations, nausea, vomiting, diarrhea, constipation, abdominal pain, or any urinary issues. [facility] Past Medical History Medical History Medial meniscus tear RIGHT knee 03/2020 Recurrent 03/2024 Tear of MCL (medial collateral ligament) of knee RIGHT knee 03/2020 Surgical History Surgical History H/O medial meniscus repair of right knee 03/2020 S/P epiphysiodesis Right distal femur/proximal tibia () Family History Family History Other Hypertension Social History Social History Smoking status: Never smoker Alcohol intake: never Substance use: never Living arrangements: with family Gender identity (if verbalized by the patient): Male Spiritual care concerns: No Comments At the time of my signature, I reviewed and agree with the nursing past medical, surgical, social, and family history. There is no relevant family history pertinent to the patient complaint. Exam Narrative: General: Well-developed, well nourished, in no apparent distress Head: Normocephalic, atraumatic. Cardio: Regular rate and rhythm, s1 and s2 normal, no murmur appreciated. Resp: Clear to auscultation bilaterally, no rhonchi, rales, wheezing or rubs. Musculoskeletal: No deformity, 5th metatarsal- tender to palpation, grossly normal range of motion, muscle strength strong and equal, peripheral pulse strong, no edema, no cyanosis, normal gait and station Course Course Emergency Course: Portions of this record may have been created with voice recognition software. Level of Care: Express Care Visit Vital Signs Vital signs: Vital Signs Temperature 36.4 C 01/26/25 15:04 Pulse Rate 72 01/26/25 15:04 Respiratory Rate 16 01/26/25 15:04 Blood Pressure 157/69 H 01/26/25 15:04 Pulse Oximetry 100 01/26/25 15:04 Temperature 36.4 C 01/26/25 15:04 Pulse Rate 72 01/26/25 15:04 Respiratory Rate 16 01/26/25 15:04 Blood Pressure 157/69 H 01/26/25 15:04 Pulse Oximetry 100 01/26/25 15:04 Vital signs reviewed MDM - Extremity Injury (Lower) MDM Narrative Medical decision making narrative: At the time of visit patient is resting comfortably on the exam table. Patient appears to be nontoxic. C/o left foot injury that occurred 30 minutes ago when he was playing basketball. He reports he was playing basketball he twisted his left foot to do a move and felt a pop in the left foot/5th metatarsal. Having pain over the left 5th metatarsal. History of fracture of the left 5th metatarsal with ORIF. X-ray of the left was ordered. Diagnosis: X-ray of left foot shows fracture of the left 5th metatarsal. No hardware fracture Plan: Patient has a recurrent fracture of the left 5th metatarsal. Postop shoe and Baldemar wrap was applied. Sensation, circulation, motion within normal limits. Referral to Dr. Rodas was given. Supportive measures were discussed with the patient and they voiced understanding discharge instructions and agrees to treatment plan. Return precautions reviewed Differential Diagnosis Differential diagnosis: Likely fracture of toe (Metatarsal fracture, foot sprain) Imaging Data Radiologist's impression: ITS Impressions Foot X-Ray 01/26/25 14:53 IMPRESSION: New transverse cortical lucency in the lateral aspect of the left fifth metatarsal shaft which may represent a recurrent stress fracture, despite the presence of a fixation screw. No definite evidence of screw failure. Infection could also be considered in the differential, but is considered less likely. Discharge Plan Discharge Clinical Impression: Closed fracture of fifth metatarsal bone of left foot Patient Disposition: Home Condition: Stable Instructions: Antibiotic Form, Foot Fracture in Adults (ED) Additional Instructions: X-ray shows a recurrent left 5th metatarsal fracture. No hardware fracture. Rest, ice, elevate, and wear baldemar wrap and postop shoe as directed Tylenol/motrin for pain as discussed. Gradually bear weight No running or sports until healed. Follow up with your PCP if symptoms persist more than 1 week. Follow-up with Dr. Rodas-call office tomorrow to schedule an appointment Patient Language: Slovak Prescriptions: No Action No Home Medications Follow-up/Referrals: Rj Rodas MD [Physician] - 1 Day (Left 5th metatarsal fracture-history of fracture with ORIF) UNKNOWN,DOCTOR [Non-Staff] - Time of Disposition: 14:38 Quality NIHSS Nursing Documentation ED NIHSS nursing documentation: reviewed/agree
[2025-01-26 15:04] VITALS: BP 157/69; PULSE 72; RESP 16; TEMP 36.4; O2SAT 100
== END 2025-01-26 15:15 | disposition home or self-care (01) ==
PROVIDERS: Emergency Provider Nurse Practitioner Family
DX: S92.352A Displaced fracture of fifth metatarsal bone, left foot, initial encounter for closed fracture (principal); X50.9XXA Other and unspecified overexertion or strenuous movements or postures, initial encounter; Y93.67 Activity, basketball
CPT/HCPCS: 73630; 99214; G0463